=== PATIENT | female | born 1995 | race Caucasian/White ===

== ENCOUNTER 2019-04-25 11:24 | Emergency (ER) | payer OTHER ==
[~2019-04-25] VITALS: Ht 157.5 cm; Wt 99.5 kg
[2019-04-25 11:35] VITALS: Ht 157.5 cm; Wt 99.5 kg
[2019-04-25 13:15] VITALS: BP 111/54
== END 2019-04-25 13:15 | disposition home or self-care (01) ==
LOC: ED 11:24
DX: G44.209 Tension-type headache, unspecified, not intractable (principal)
CPT/HCPCS: J0780; J1885